=== PATIENT | female | born 1960 | race Caucasian/White ===

== ENCOUNTER 2019-02-04 09:47 | Emergency (ER) | payer OTHER ==
--- NOTE | 2019-02-04 10:26 | ER ---
Nurse's Notes [facility] Name: Gracie Uriarte Age: 58 yrs Sex: Female : 1960 Arrival Date: 02/04/2019 Time: 09:51 Bed 17 Private MD: Diagnosis: Encounter for removal of sutures-kailyn Presentation: 02/04 10:11 Presenting complaint: Patient states: Had kailyn placed while out of town for [facility] Day, states, " I hit my head on a slide out on our camper." 6 kailyn placed to R top of head, denies fever or pain. Transition of care: patient was not received from another setting of care. Onset of symptoms was February 04, 2019. Risk Assessment: Do you want to hurt yourself or someone else? Patient reports no desire to harm self or others. Initial Sepsis Screen: Does the patient meet any 2 criteria? No. Patient's initial sepsis screen is negative. Does the patient have a suspected source of infection? No. Patient's initial sepsis screen is negative. Care prior to arrival: None. 10:11 Method Of Arrival: Ambulatory ph 10:11 Acuity: MAGAN 5 ph Historical: - Allergies: 10:13 Codeine; ph 10:13 Aspirin; ph - PSHx: 10:13 left knee; Appendectomy; partial hysterectomy; Bowel resection; ph - Immunization history:: Adult Immunizations unknown. - Social history:: Smoking status: unknown. - Ebola Screening: : No symptoms or risks identified at this time. Screenin:14 Abuse screen: Denies threats or abuse. Denies injuries from another. Nutritional ph screening: No deficits noted. Tuberculosis screening: No symptoms or risk factors identified. Fall Risk None identified. Assessment: 10:14 General: Appears in no apparent distress. comfortable, well groomed, Behavior is calm, ph cooperative, appropriate for age, Denies fever, feeling ill. Pain: Denies pain. Neuro: Level of Consciousness is awake, alert, obeys commands, Oriented to person, place, time, situation. Cardiovascular: Capillary refill < 3 seconds in bilateral fingers Patient's skin is warm and dry. Respiratory: Airway is patent Respiratory effort is even, unlabored. Derm: Skin is healthy with good turgor, Skin is pink, warm \\T\\ dry. Musculoskeletal: Circulation, motion, and sensation intact. Range of motion: intact in all extremities. Vital Signs: 10:12 BP 154 / 99; Pulse 76; Resp 18; Temp 97.2; Pulse Ox 99% on R/A; Weight 90.72 kg; Height ph 5 ft. 3 in. (160.02 cm); Pain 0/10; 10:12 Body Mass Index 35.43 (90.72 kg, 160.02 cm) ph ED Course: 09:51 Patient arrived in ED. mr 09:56 [facility] Bridges [facility]C [facility]. snw 09:56 Hermilo Alamo MD is Attending Physician. snw 10:10 Mercy Hu, THU is Primary Nurse. ph 10:12 Triage completed. ph 10:14 Arm band placed on Patient placed in an exam room, on a stretcher, on pulse oximetry. ph 10:14 Patient has correct armband on for positive identification. Bed in low position. Call ph light in reach. Side rails up X 1. Pulse ox on. NIBP on. Door closed. Noise minimized. 10:15 No provider procedures requiring assistance completed. Patient did not have IV access ph during this emergency room visit. Administered Medications: No medications were administered Outcome: 10:25 Discharge ordered by . snw 10:28 Discharged to home ambulatory. ph 10:28 Condition: good 10:28 Discharge instructions given to patient. ph 10:28 Patient left the ED. ph Signatures: Elissa Bridges FNP-C FNP-Hao aDniela Davies mr Mercy Hu, RN RN ph
--- NOTE | 2019-02-04 10:26 | EDPHYS ---
Physician Documentation [facility] Name: Gracie Uriarte Age: 58 yrs Sex: Female : 1960 Arrival Date: 02/04/2019 Time: 09:51 Bed 17 Private MD: ED Physician Hermilo Alamo HPI: 02/04 10:29 This 58 yrs old Female presents to ER via Ambulatory with complaints of snw Suture Removal. 10:29 The patient has kailyn on the top of head. Previous treatment: Treatment type: The snw patient's original treatment included kailyn. Sutures/kailyn progress: The patient has no c/o's. The wound is well-healing with no redness, swelling, discharge, or dehiscence reported. The patient has not experienced similar symptoms in the past. Historical: - Allergies: 10:13 Codeine; ph 10:13 Aspirin; ph - PSHx: 10:13 left knee; Appendectomy; partial hysterectomy; Bowel resection; ph - Immunization history:: Adult Immunizations unknown. - Social history:: Smoking status: unknown. - Ebola Screening: : No symptoms or risks identified at this time. ROS: 10:27 Constitutional: Negative for fever, chills, and weight loss, Eyes: Negative for injury, snw pain, redness, and discharge, ENT: Negative for injury, pain, and discharge, Neck: Negative for injury, pain, and swelling, Cardiovascular: Negative for chest pain, palpitations, and edema, Respiratory: Negative for shortness of breath, cough, wheezing, and pleuritic chest pain, Abdomen/GI: Negative for abdominal pain, nausea, vomiting, diarrhea, and constipation, Back: Negative for injury and pain, : Negative for injury, bleeding, discharge, and swelling, MS/Extremity: Negative for injury and deformity, Neuro: Negative for headache, weakness, numbness, tingling, and seizure. 10:27 Skin: Positive for laceration(s), last week, kailyn placed at another facility. 10:27 Neuro: Negative for altered mental status, dizziness, loss of consciousness. Exam: 10:30 Constitutional: This is a well developed, well nourished patient who is awake, alert, snw and in no acute distress. Head/Face: Normocephalic, atraumatic. Eyes: Pupils equal round and reactive to light, extra-ocular motions intact. Lids and lashes normal. Conjunctiva and sclera are non-icteric and not injected. Cornea within normal limits. Periorbital areas with no swelling, redness, or edema. ENT: Nares patent. No nasal discharge, no septal abnormalities noted. Tympanic membranes are normal and external auditory canals are clear. Oropharynx with no redness, swelling, or masses, exudates, or evidence of obstruction, uvula midline. Mucous membranes moist. Neck: Trachea midline, no thyromegaly or masses palpated, and no cervical lymphadenopathy. Supple, full range of motion without nuchal rigidity, or vertebral point tenderness. No Meningismus. Chest/axilla: Normal chest wall appearance and motion. Nontender with no deformity. No lesions are appreciated. Cardiovascular: Regular rate and rhythm with a normal S1 and S2. No gallops, murmurs, or rubs. Normal PMI, no JVD. No pulse deficits. Respiratory: Lungs have equal breath sounds bilaterally, clear to auscultation and percussion. No rales, rhonchi or wheezes noted. No increased work of breathing, no retractions or nasal flaring. Abdomen/GI: Soft, non-tender, with normal bowel sounds. No distension or tympany. No guarding or rebound. No evidence of tenderness throughout. Back: No spinal tenderness. No costovertebral tenderness. Full range of motion. MS/ Extremity: Pulses equal, no cyanosis. Neurovascular intact. Full, normal range of motion. Neuro: Awake and alert, GCS 15, oriented to person, place, time, and situation. Cranial nerves II-XII grossly intact. Motor strength 5/5 in all extremities. Sensory grossly intact. Cerebellar exam normal. Normal gait. Psych: Awake, alert, with orientation to person, place and time. Behavior, mood, and affect are within normal limits. 10:30 Skin: Appearance: normal except for affected area, injury, laceration(s), well healed area to top of scalp, well approximated, no discharge, 6 kailyn removed. Vital Signs: 10:12 BP 154 / 99; Pulse 76; Resp 18; Temp 97.2; Pulse Ox 99% on R/A; Weight 90.72 kg; Height ph 5 ft. 3 in. (160.02 cm); Pain 0/10; 10:12 Body Mass Index 35.43 (90.72 kg, 160.02 cm) ph Procedures: 10:28 Suture/Staple removal: Removed 6 kailyn, from top of head, site appears well healed, snw Patient tolerated well. MDM: 10:09 Patient medically screened. snw 10:25 Data reviewed: vital signs, nurses notes. Data interpreted: Pulse oximetry: on room air snw is 99 %. Interpretation: normal. Counseling: I had a detailed discussion with the patient and/or guardian regarding: the historical points, exam findings, and any diagnostic results supporting the discharge/admit diagnosis, the presence of at least one elevated blood pressure reading (>120/80) during this emergency department visit, to return to the emergency department if symptoms worsen or persist or if there are any questions or concerns that arise at home. Response to treatment: There is no appreciated change of the patient's symptoms at this time. Special discussion: Based on the patient's history, exam and DX evaluation, there is no indication for emergent intervention or inpatient TX. It is understood by the patient/guardian that if the SXs persist or worsen they need to return immediately for re-evaluation. I discussed in detail with the patient the higher chance of wound infection based on his presenting history. Based on the history and exam findings, there is no indication for further emergent testing or inpatient evaluation. I discussed with the patient/guardian the need to see the primary care provider for further evaluation of the symptoms. Administered Medications: No medications were administered Disposition: 15:52 Co-signature as Attending Physician, Hermilo Alamo MD. Disposition: 02/04/19 10:25 Discharged to Home. Impression: Encounter for removal of sutures - kailyn. - Condition is Stable. - Discharge Instructions: Suture Removal, Care After, Incision Care, Adult, Wound Care. - Medication Reconciliation Form, Thank You Letter, Antibiotic Education, Prescription Opioid Use form. - Follow up: Private Physician; When: 1 week; Reason: Recheck today's complaints, Continuance of care, Re-evaluation by your physician. Follow up: Emergency Department; When: As needed; Reason: Worsening of condition. Signatures: Elissa Bridges, [employer] O[employer]ATOR-Haow Mercy Hu RN RN ph Starr, Gregory, MD MD Corrections: (The following items were deleted from the chart) 10:28 10:25 02/04/2019 10:25 Discharged to Home. Impression: Encounter for removal of sutures ph - kailyn. Condition is Stable. Forms are Medication Reconciliation Form, Thank You Letter, Antibiotic Education, Prescription Opioid Use. Follow up: Private Physician; When: 1 week; Reason: Recheck today's complaints, Continuance of care, Re-evaluation by your physician. Follow up: Emergency Department; When: As needed; Reason: Worsening of condition. snw
== END 2019-02-04 10:28 | disposition home or self-care (01) ==
LOC: ER 09:47
DX: Z48.02 Encounter for removal of sutures (principal)
CPT/HCPCS: 99283